=== PATIENT | male | born 1995 | race Caucasian/White ===

== ENCOUNTER 2017-06-20 12:19 | Emergency (ER) | payer BC ==
[~2017-06-20] VITALS: Ht 177.8 cm; Wt 69.3 kg
[2017-06-20 12:24] VITALS: TEMP 37.1; Ht 177.8 cm; Wt 69.3 kg
[2017-06-20] MEDS ORDERED: KETOROLAC TROMETHAMINE 30 MG/ML VIAL IV STA (13:05)
[2017-06-20] MEDS ORDERED: CEFTRIAXONE SOD INJ 1 GM ADDVIAL IV STA (13:05)
[2017-06-20] MEDS ORDERED: DEXAMETHASONE INJ 10 MG in SYRINGE 0 ML IV STA (13:05)
[2017-06-20] MEDS ORDERED: SODIUM CHLORIDE 0.9% 1000ML 1,000 ML IV STA (13:05)
[2017-06-20] MEDS ORDERED: SODIUM CHLORIDE 0.9% 500ML 500 ML IV STA (13:05)
[2017-06-20] MEDS ORDERED: DEXAMETHASONE **PF** INJ 10 MG/ML VIAL ONE (13:21)
[2017-06-20 13:22] LABS: BASO % 0.1 %; BASO ABS # 0.02 K/uL (0-0.2); EOS % 0.1 %; EOS ABS # 0.01 K/uL (0-0.5); HEMATOCRIT 41.8 % (42-52); HEMOGLOBIN 14.9 g/dL (14.0-18.0); IG# 0.05 K/uL (0.00-0.02); LYMPH % 6.2 %; LYMPH ABS # 1.06 K/uL (1.2-3.4); MEAN CELL VOLUME 82.4 fL (80-100); MEAN CORPUSCULAR HEMOGLOBIN 29.4 pg (25-34); MEAN CORPUSCULAR HGB CONC 35.6 g/dl (32-36); MEAN PLATELET VOLUME 12.1 fL (7.4-10.4); MONO % 7.9 %; MONO ABS # 1.36 K/uL (0.11-0.59); NEUT % 85.4 %; NEUT ABS # 14.62 K/uL (1.4-6.5); PLATELET COUNT 140 K/uL (130-400); RED CELL DISTRIBUTION WIDTH CV 12.4 % (11.5-14.5); RED CELL DISTRIBUTION WIDTH SD 37.1 fL (36.4-46.3); WHITE BLOOD COUNT 17.12 K/uL (4.8-10.8)
[2017-06-20 13:25] LABS: CALCIUM 9.3 mg/dl (8.5-10.1); CREATININE 1.03 mg/dl (0.60-1.40); POTASSIUM 3.5 mmol/L (3.5-5.1)
--- NOTE | 2017-06-20 13:35 | DIAGNOSTIC IMAGING REPORT ---
CHEST ONE VIEW PORTABLE CLINICAL HISTORY: 21 years-old Male presenting with cough, fever, strep throat. TECHNIQUE: Portable upright AP view of the chest was obtained. COMPARISON: None. FINDINGS: Cardiomediastinal silhouette normal. Lungs and pleural spaces clear. Osseous structures normal. Upper abdomen normal. IMPRESSION: 1. No acute cardiopulmonary disease. Electronically signed by: Segundo Remy M.D. 06/20/2017 1:34 PM Dictated Date/Time: 06/20/2017 1:33 PM
[2017-06-20 14:11] LABS: INFLUENZA B ANTIGEN Neg for Influ B (NEG)
[2017-06-20] MEDS ORDERED: PRLUDL5 PO (15:06)
[2017-06-20] MEDS ORDERED: KFLS250100 PO (15:06)
--- NOTE | 2017-06-20 15:18 | EMERGENCY ROOM VISIT NOTE ---
History Report prepared by Devi: Devonte Godoy Under the Supervision of: Dr. Thomas Mcgowan M.D. First contact with patient: 12:58 Chief Complaint: FLU LIKE SX Stated Complaint: STREPTHROAT AND FLU- SENT FROM [facility] History of Present Illness The patient is a 21 year old male who presents to the Emergency Room with complaints of persistent sore throat since 1800 on June 17, 2017. He states that he developed a sore throat at that time. He reports a fever since June 18, 2017. He states his coughing has worsened today. He states he was able to swallow at 0500 this morning, though he reports difficultly and pain with swallowing. He notes his brother and roommate are also sick. He was seen at [facility] today and was advised to come to the ED for concern of dehydration. He states they were also concerned for strep and influenza. He notes that he had a Wilbarger spot test, which came back negative. He has a history of cystic fibrosis. Laboratory workup obtained from [facility] showed: WBC 18.5 Hemoglobin is 15.9 platelet 171 POS Rapid Strep NEG Influenza Source of History: patient Onset: 1800 on June 17, 2017 Position: throat Quality: other (sore) Timing: other (persistent) Associated Symptoms: + fevers, + cough Note: He notes left ear pain. He notes difficulty and pain with swallowing. Review of Systems See HPI for pertinent positives & negatives. A total of 10 systems reviewed and were otherwise negative. Past Medical & Surgical Medical Problems: (1) Cystic fibrosis (2) Staph infection Family History Cancer FHx: lung disease Hypertension Social History Smoking Status: Unknown if Ever Smoked Alcohol Use: none Marital Status: single Housing Status: lives with roommate Occupation Status: student Current/Historical Medications Scheduled Cephalexin Monohydrate (Keflex Susp), 10 ML PO TID Prednisolone (Prelone 15MG/5ML), 3 TSP PO QD Allergies Coded Allergies: No Known Allergies (Unverified , 06/20/17) Physical Exam Vital Signs Date Time Temp Pulse Resp B/P (MAP) Pulse Ox O2 Delivery O2 Flow Rate FiO2 06/20/17 15:30 83 18 137/65 99 06/20/17 14:40 84 14 126/66 98 Room Air 06/20/17 12:24 37.1 110 20 115/64 98 Room Air Physical Exam GENERAL: Patient is in no acute distress. HEENT: No acute trauma, normocephalic atraumatic, mucous membranes moist, no nasal congestion, no scleral icterus. Significant throat erythema with exudate. No evidence for abscess. Spitting out his saliva. NECK: No stridor, mild bilateral anterior cervical adenopathy, no meningismus, trachea is midline. LUNGS: Diminished breath sounds bilaterally, no wheeze, no rhonchi, breath sounds equal. HEART: Without murmurs, tachycardic rate and regular rhythm. ABDOMEN: Soft, nontender, bowel sounds positive, no hernias, no peritonitis. EXTREMITIES: No cyanosis or edema, full range of motion of all the joints without pain or difficulty, no signs for acute trauma. NEUROLOGIC: Oriented x 3, no acute motor or sensory deficits, no focal weakness. SKIN: No rash, no jaundice, no diaphoresis. Medical Decision & Procedures ER Provider Diagnostic Interpretation: Radiology results as stated below per my review and radiologist interpretation: CHEST ONE VIEW PORTABLE CLINICAL HISTORY: 21 years-old Male presenting with cough, fever, strep throat. TECHNIQUE: Portable upright AP view of the chest was obtained. COMPARISON: None. FINDINGS: Cardiomediastinal silhouette normal. Lungs and pleural spaces clear. Osseous structures normal. Upper abdomen normal. IMPRESSION: 1. No acute cardiopulmonary disease. Electronically signed by: Segundo Remy M.D. 06/20/2017 1:34 PM Dictated Date/Time: 06/20/2017 1:33 PM Laboratory Results 06/20/17 12:45 Red Blood Count 5.07, Mean Corpuscular Volume 82.4, Mean Corpuscular Hemoglobin 29.4, Mean Corpuscular Hemoglobin Concent 35.6, Mean Platelet Volume 12.1, Neutrophils (%) (Auto) 85.4, Lymphocytes (%) (Auto) 6.2, Monocytes (%) (Auto) 7.9, Eosinophils (%) (Auto) 0.1, Basophils (%) (Auto) 0.1, Neutrophils # (Auto) 14.62, Lymphocytes # (Auto) 1.06, Monocytes # (Auto) 1.36, Eosinophils # (Auto) 0.01, Basophils # (Auto) 0.02 06/20/17 12:45 Test 06/20/17 12:45 06/20/17 13:28 White Blood Count 17.12 K/uL (4.8-10.8) Red Blood Count 5.07 M/uL (4.7-6.1) Hemoglobin 14.9 g/dL (14.0-18.0) Hematocrit 41.8 % (42-52) Mean Corpuscular Volume 82.4 fL (80-100) Mean Corpuscular Hemoglobin 29.4 pg (25-34) Mean Corpuscular Hemoglobin Concent 35.6 g/dl (32-36) Platelet Count 140 K/uL (130-400) Mean Platelet Volume 12.1 fL (7.4-10.4) Neutrophils (%) (Auto) 85.4 % Lymphocytes (%) (Auto) 6.2 % Monocytes (%) (Auto) 7.9 % Eosinophils (%) (Auto) 0.1 % Basophils (%) (Auto) 0.1 % Neutrophils # (Auto) 14.62 K/uL (1.4-6.5) Lymphocytes # (Auto) 1.06 K/uL (1.2-3.4) Monocytes # (Auto) 1.36 K/uL (0.11-0.59) Eosinophils # (Auto) 0.01 K/uL (0-0.5) Basophils # (Auto) 0.02 K/uL (0-0.2) RDW Standard Deviation 37.1 fL (36.4-46.3) RDW Coefficient of Variation 12.4 % (11.5-14.5) Immature Granulocyte % (Auto) 0.3 % Immature Granulocyte # (Auto) 0.05 K/uL (0.00-0.02) Anion Gap 10.0 mmol/L (3-11) Est Creatinine Clear Calc Drug Dose 113.1 ml/min Estimated GFR () 121.5 Estimated GFR (Non- 104.8 BUN/Creatinine Ratio 9.6 (10-20) Calcium Level 9.3 mg/dl (8.5-10.1) Monoscreen NEG (NEG) Influenza Type A Antigen Neg for Influ A (NEG) Influenza Type B Antigen Neg for Influ B (NEG) Laboratory results reviewed by me. Medications Administered Medications (Trade) Dose Ordered Sig/Selena Route Start Time Stop Time Status Last Admin Dose Admin Ceftriaxone Sodium (Rocephin Inj) 1 gm NOW STAT IV 06/20/17 13:05 06/20/17 13:08 DC 06/20/17 13:27 1 GM Dexamethasone Sodium Phosphate 10 mg/Syringe 2.5 ml @ 1 mls/min NOW STAT IV 06/20/17 13:05 06/20/17 13:08 DC 06/20/17 13:27 1 MLS/MIN Sodium Chloride 500 ml @ 999 mls/hr Q31M STAT IV 06/20/17 13:05 06/20/17 13:35 DC 06/20/17 13:57 999 MLS/HR Sodium Chloride 1,000 ml @ 999 mls/hr Q1H1M STAT IV 06/20/17 13:05 06/20/17 14:05 DC 06/20/17 13:12 999 MLS/HR Ketorolac Tromethamine (Toradol Inj) 30 mg NOW STAT IV 06/20/17 13:05 06/20/17 13:08 DC 06/20/17 13:27 30 MG ED Course 1300: The patient was evaluated in room C5. A complete history and physical exam was performed. 1305: Ordered Toradol 30 mg IV, Sodium Chloride 1,500 ml @ 999 mls/hr IV, and Dexamethasone Sodium Phosphate 10 mg/Syringe 2.5 ml @ 1 mls/min, and Ceftriaxone Sodium 1 gm IV 1456: I reassessed the patient at this time. He is feeling better and resting comfortably. I discussed the results and treatment plan with the patient. I answered all pertaining questions that he had. He expressed understanding and verbalized agreement. The patient will be discharged home. Medical Decision The patient is a 21 year old male who presents to the ED with complaints of sore throat. Differential diagnoses considered include strep pharyngitis, influenza, mononucleosis, peritonsillar abscess, dehydration, electrolyte imbalance, and PNA. The patient presents with flulike symptoms and a sore throat. On exam, he had pharyngitis. Strep testing was positive as reported by the outpatient office. The patient does have a moderate leukocytosis of 17,000, this is certainly consistent with a strep infection. No anemia. No significant electrolyte abnormality or kidney failure. Wilbarger testing and influenza testing is negative. Chest film does not show pneumonia. On exam, the patient did not have evidence for a peritonsillar abscess. The patient received IV ceftriaxone, IV saline, IV Toradol. He received IV Decadron. The patient feels improved. He is tolerating oral intake. He would like to be discharged home. His mother arrived and we discussed all findings. The patient is being discharged on liquid Keflex and liquid Prelone. Hydration and rest were encouraged. Motrin and/or Tylenol for pain. Chloraseptic to the throat was also suggested. If he is worsening, he can return for reassessment. Medication Reconcilliation Current Medication List: was personally reviewed by me Blood Pressure Screening Patient's blood pressure: Normal blood pressure Impression Primary Impression: Strep pharyngitis Additional Impression: Dehydration Scribe Attestation The scribe's documentation has been prepared under my direction and personally reviewed by me in its entirety. I confirm that the note above accurately reflects all work, treatment, procedures, and medical decision making performed by me. Departure Information Dispostion Home / Self-Care Prescriptions Cephalexin Monohydrate (KEFLEX SUSP) 250 Mg/5 Ml Susp 10 ML PO TID for 10 Days, #300 ML Prov: Thomas Mcgowan M.D. 06/20/17 Prednisolone (PRELONE 15MG/5ML) 15 Mg/5 Ml Syrp 3 TSP PO QD for 5 Days, #75 ML Prov: Thomas Mcgowan M.D. 06/20/17 Referrals No Doctor, Assigned (PCP) Forms HOME CARE DOCUMENTATION FORM, IMPORTANT VISIT INFORMATION, School Instructions Patient Instructions My [facility] [employer] Additional Instructions chloraseptic spray over the counter to help the sore throat motrin and or tylenol for fever and pain fluids rest keflex (250/5) 2 tsp 3x per day for 10 days prelone (15/5)---3 tsp daily for 5 days see [facility] sunday for a recheck return to the ER if worsening as we discussed Problem Qualifiers
[2017-06-20 15:30] VITALS: BP 137/65; PULSE 83; O2SAT 99
== END 2017-06-20 15:42 | disposition home or self-care (01) ==
LOC: C.EDB 12:21 → C.EDC 15:42
DX: J02.0 Streptococcal pharyngitis (principal); E86.0 Dehydration; Z82.49 Family history of ischemic heart disease and other diseases of the circulatory system